=== PATIENT | female | born 1985 | race Caucasian/White ===

== ENCOUNTER 2018-08-09 11:29 | Emergency (ER) | payer OTHER ==
--- NOTE | 2018-08-09 12:50 | EDPHY ---
H & P Stated Complaint: Dx w UTI yest, not feeling better after 24hrs of abx Time Seen by Provider: 08/09/18 12:46 HPI/ROS: CHIEF COMPLAINT: Left flank pain, dysuria HISTORY OF PRESENT ILLNESS: The patient is a 33-year-old female who comes to the emergency department concerned because her urine infection is not improving. She states that on Monday she began noticing dysuria and frequency. Also suprapubic pain. Yesterday she began to notice some bilateral flank pain as well. She describes it as moderate. She presented to [facility] and had a positive urinalysis and was started on ciprofloxacin. Urine was sent for cultures. She was told that if she does not feel better by today to come to the ER. She still is having the same symptoms. They have not worsened. She does not have a fever. No vomiting. No diarrhea. She denies risk of . No vaginal bleeding or discharge Modifying factors: None REVIEW OF SYSTEMS: Constitutional: denies: chills, fever, recent illness, recent injury EENTM: denies: blurred vision, double vision, nose congestion Respiratory: denies: cough, shortness of breath Cardiac: denies: chest pain, irregular heart rate, lightheadedness, palpitations Gastrointestinal/Abdominal: denies: abdominal pain, diarrhea, nausea, vomiting, blood streaked stools Genitourinary: See HPI Musculoskeletal: denies: joint pain, muscle pain Skin: denies: lesions, rash, jaundice, bruising Neurological: denies: headache, numbness, paresthesia, tingling, dizziness, weakness Hematologic/Lymphatic: denies: blood clots, easy bleeding, easy bruising Immunologic/allergic: denies: HIV/AIDS, transplant 10 systems reviewed and negative except as noted EXAM: GENERAL: Well-appearing, well-nourished and in no acute distress. HEAD: Atraumatic, normocephalic. EYES: Pupils equal round and reactive to light, extraocular movements intact, sclera anicteric, conjunctiva are normal. ENT: TMs normal, nares patent, oropharynx clear without exudates. Moist mucous membranes. NECK: Normal range of motion, supple without lymphadenopathy or JVD. LUNGS: Breath sounds clear to auscultation bilaterally and equal. No wheezes rales or rhonchi. HEART: Regular rate and rhythm without murmurs, rubs or gallops. ABDOMEN: Soft, nontender, normoactive bowel sounds. No guarding, no rebound. No masses appreciated. BACK: No CVA tenderness, no spinal tenderness, step-offs or deformities EXTREMITIES: Normal range of motion, no pitting or edema. No clubbing or cyanosis. NEUROLOGICAL: Cranial nerves II through XII grossly intact. Normal speech, normal gait. 5/5 strength, normal movement in all extremities, normal sensation , normal reflexes PSYCH: Normal mood, normal affect. SKIN: Warm, dry, normal turgor, no visible rashes or lesions. Source: Patient Exam Limitations: No limitations - Personal History LMP (Females 10-55): Over 28 Days Ago Current Tetanus/Diphtheria Vaccine: Yes Current Tetanus Diphtheria and Acellular Pertussis (TDAP): Yes Tetanus Vaccine Date: < 10 YEARS - Medical/Surgical History Hx Asthma: Yes Hx Chronic Respiratory Disease: No Hx Diabetes: No Hx Cardiac Disease: No Hx Renal Disease: No Hx Cirrhosis: No Hx Alcoholism: No Hx HIV/AIDS: No Hx Splenectomy or Spleen Trauma: No Other PMH: athletic induced asthma - Family History Significant Family History: No pertinent family hx - Social History Smoking Status: Never smoked Alcohol Use: Sober Drug Use: None Constitutional: Initial Vital Signs Temperature (C) 36.6 C 08/09/18 11:36 Heart Rate 51 L 08/09/18 11:36 Respiratory Rate 16 08/09/18 11:36 Blood Pressure 112/59 L 08/09/18 11:36 O2 Sat (%) 99 08/09/18 11:36 O2 Delivery Mode Room Air Allergies/Adverse Reactions: aloe vera [From Vagisil] Allergy (Verified 08/09/18 11:34) benzocaine [From Vagisil] Allergy (Verified 08/09/18 11:34) mineral oil* [From Vagisil] Allergy (Verified 08/09/18 11:34) resorcinol [From Vagisil] Allergy (Verified 08/09/18 11:34) starch [From Vagisil] Allergy (Verified 08/09/18 11:34) vitamin E (d-alpha tocopherol) [From Vagisil] Allergy (Verified 08/09/18 11:34) vitamins A and D [From Vagisil] Allergy (Verified 08/09/18 11:34) Home Medications: Medication Instructions Recorded Albuterol 09/10/13 Cephalexin [Keflex] 500 mg PO TID #30 cap 08/09/18 Medical Decision Making ED Course/Re-evaluation: Patient is well-appearing and has stable vital signs. I do not think that she is septic. She likely does have pyelonephritis. She was started on ciprofloxacin. There is a high resistance to ciprofloxacin here and [place]. I will change her to Keflex and give her dose of Rocephin while she is here in the department. Otherwise she is well appearing and will likely succeed as an outpatient. Differential Diagnosis: Partial list of the Differential diagnosis considered include but were not limited to; urinary tract infection, pyelonephritis and although unlikely based on the history and physical exam, I also considered kidney stone, sepsis, , ovarian cyst. - Data Points Laboratory Results: 08/09/18 08/09/18 11:45 11:45 Urine Color YELLOW Urine Appearance CLEAR Urine pH 6.0 (5.0-7.5) Ur Specific [place] 1.010 (1.002-1.030) Urine Protein NEGATIVE (NEGATIVE) Urine Ketones NEGATIVE (NEGATIVE) Urine Blood NEGATIVE (NEGATIVE) Urine Nitrate NEGATIVE (NEGATIVE) Urine Bilirubin NEGATIVE (NEGATIVE) Urine Urobilinogen NEGATIVE EU EU (0.2-1.0) Ur Leukocyte Esterase NEGATIVE (NEGATIVE) Urine RBC 1-3 /hpf /hpf (0-3) Urine WBC 1-3 /hpf /hpf (0-3) Ur Epithelial Cells TRACE /lpf /lpf (NONE-1+) Urine Mucus TRACE /lpf /lpf (NONE-1+) Urine Glucose NEGATIVE (NEGATIVE) Urine Test NEGATIVE Medications Given: Discontinued Medications Ceftriaxone Sodium/Dextrose (Rocephin 1 Gm (Premix)) 50 mls @ 100 mls/hr IV EDNOW ONE PRN Reason: Protocol Stop: 08/09/18 13:19 Last Admin: 08/09/18 13:16 Dose: 50 mls Departure - Departure Disposition: Home, Routine, Self-Care Clinical Impression: Urinary tract infection Qualifiers: Urinary tract infection type: acute pyelonephritis Qualified Code(s): N10 - Acute pyelonephritis Condition: Fair Instructions: Urinary Tract Infection in Women (ED) Additional Instructions: discontinue taking the Cipro you were prescribed. Begin taking the Keflex as directed. Return to the ED with worsening symptoms. Referrals: NONE *PRIMARY CARE P,. [Primary Care Provider] - As per Instructions Hortensia Gomez NP [Certified Nurse Practioner] - As per Instructions Prescriptions: Cephalexin [Keflex] 500 mg PO TID #30 cap
[2018-08-09 13:33] VITALS: BP 117/70
== END 2018-08-09 13:31 | disposition home or self-care (01) ==
DX: N39.0 Urinary tract infection, site not specified (principal)
CPT/HCPCS: 96365; J0696